=== PATIENT | male | born 1980 | race American Indian/Alaskan Native ===

== ENCOUNTER 2019-05-05 14:47 | Emergency (ER) | payer MEDICAID ==
[2019-05-05] MEDS ORDERED: traMADol 50 MG TAB PO ONE (15:38)
[2019-05-05] MEDS ORDERED: IBUPROFEN 600 MG TAB PO ONE (15:38)
--- NOTE | 2019-05-05 16:15 | Emergency Department Report ---
ED Extremity Problem HPI - General Chief complaint: Extremity Injury, Lower Stated complaint: LEFT LEG PAIN Time Seen by Provider: 05/05/19 15:33 Source: patient Mode of arrival: Ambulatory Limitations: No Limitations - History of Present Illness Initial comments: Patient is a 39-year-old gentleman who states in his lifetime he suffered multiple ankle sprains. Patient states that he twisted his left ankle proctoscopy 6 weeks ago. Patient states that initially had some lateral pain only now he has pain in the ankle as well as the entire calf with swelling. Patient states the pain is 8 out of 10 in severity is worse with walking and bearing weight. Patient was assuming after a few weeks that he could start walking on the ankle normally but states that the swelling has progressively worsened. Patient was reluctant to come in the hospital however he states is now unbearable. Patient denies any fevers chills nausea vomiting at this time. - Related Data Previous Rx's Medication Instructions Recorded Last Taken Type Cephalexin [Keflex] 500 mg PO BID #20 capsule 01/28/14 Unknown Rx HYDROcodone/APAP 5-325 [[place] 1 each PO Q6HR PRN #14 tablet 01/28/14 Unknown Rx 5-325 mg TAB] Sulfamethoxazole/Trimethoprim 1 each PO BID #20 tablet 01/28/14 Unknown Rx [Bactrim Ds] HYDROcodone/APAP 5-325 [[place] 1 each PO Q6HR PRN #14 tablet 05/05/19 Unknown Rx 5/325] Ibuprofen [Motrin 600 MG tab] 600 mg PO Q8H PRN #20 tablet 05/05/19 Unknown Rx Allergies Allergy/AdvReac Type Severity Reaction Status Date / Time No Known Allergies Allergy Unverified 06/07/13 14:56 ED Review of Systems ROS: Stated complaint: LEFT LEG PAIN Other details as noted in HPI Comment: All other systems reviewed and negative ED Past Medical Hx - Past Medical History Previous Medical History?: Yes Hx Diabetes: Yes - Surgical History Past Surgical History?: Yes - Social History Smoking Status: Never Smoker Substance Use Type: None - Medications Home Medications: Home Medications Medication Instructions Recorded Confirmed Last Taken Type Cephalexin [Keflex] 500 mg PO BID #20 capsule 01/28/14 Unknown Rx HYDROcodone/APAP 5-325 [[place] 1 each PO Q6HR PRN #14 tablet 01/28/14 Unknown Rx 5-325 mg TAB] Sulfamethoxazole/Trimethoprim 1 each PO BID #20 tablet 01/28/14 Unknown Rx [Bactrim Ds] HYDROcodone/APAP 5-325 [[place] 1 each PO Q6HR PRN #14 tablet 05/05/19 Unknown Rx 5/325] Ibuprofen [Motrin 600 MG tab] 600 mg PO Q8H PRN #20 tablet 05/05/19 Unknown Rx ED Physical Exam - General Limitations: No Limitations General appearance: alert, in no apparent distress - Head Head exam: Present: atraumatic, normocephalic - Eye Eye exam: Present: normal appearance - ENT ENT exam: Present: mucous membranes moist - Neck Neck exam: Present: normal inspection - Respiratory Respiratory exam: Present: normal lung sounds bilaterally. Absent: respiratory distress, wheezes, rales - Cardiovascular Cardiovascular Exam: Present: regular rate, normal rhythm. Absent: systolic murmur, diastolic murmur, rubs, gallop - Rectal Rectal exam: Present: deferred - Extremities Exam Extremities exam: Present: normal inspection, other (patient has trace edema in the right lower extremity calf. The left lower extremity has 2+ edema and is dramatically more swollen than the right lower extremity. There is some mild erythema diffusely with warmth. Patient has some generalized tenderness that he describes as a tight sensation with palpation of the anterior and posterior calf. He has exquisite tenderness to the lateral malleolus.) - Back Exam Back exam: Present: normal inspection - Neurological Exam Neurological exam: Present: alert, oriented X3 - Psychiatric Psychiatric exam: Present: normal affect, normal mood - Skin Skin exam: Present: warm, dry, intact, normal color. Absent: rash ED Course Vital Signs 05/05/19 16:30 Respiratory 18 Rate - Reevaluation(s) Reevaluation #1: 05/05/19 16:14 Patient is a 39-year-old male who suffered a ankle injury approximately 6 weeks ago. Patient states pain is not improving. Patient stated he has injured his ankle in the past and expected to have resolution of his symptoms by now. Patient also states over the last several weeks his left calf is now swollen and tender as well. Patient will have x-ray of the left ankle to rule out a subacute fracture and the patient also had ultrasound performed. Patient's has no pallor to the leg. There is no pain out of proportion to palpation. Patient has intact dorsalis pedal pulses. ED Medical Decision Making - Medical Decision Making Patient is a 39-year-old male who is presenting several weeks after a left ankle sprain and he's also developed some edema to his left lower extremity since. Patient has gone back to work and walking on his leg quite a bit. Patient likely with an ankle sprain there is no fracture present and no evidence of a subacute fracture. Patient has edema to the left lower extremity there is no DVT present. Patient to be Brayden wrapped to give compression patient should keep this lower sternly elevated when not on his feet. Patient agreed to follow with orthopedics. Patient's given pain management. Patient discharged home. [address] [address] Vascular Lab Report Signed Patient: VALE MIRANDA MR#: [id number] : 1980 Acct:[id number] Age/Sex: 39 / M ADM Date: 05/05/19 Loc: ED Attending Dr: Ordering Physician: KARLA DAVID MD Date of Service: 05/05/19 Procedure(s): VL venous duplex LE LT Accession Number(s): [id number] cc: KARLA DAVID MD DUPLEX DOPPLER LOWER EXTREMITY VEINS, LEFT INDICATION: swelling of leg after injury. TECHNIQUE: Duplex doppler imaging was performed through the veins of the left lower extremity using venous compression and other maneuvers. COMPARISON: None available. FINDINGS: Common Femoral vein: Negative. Superficial Femoral vein: Negative. Popliteal vein: Negative. Calf veins: Negative. Additional findings: None. IMPRESSION: 1. No sonographic evidence for DVT in the left lower extremity. Signer Name: Samson Bear MD Signed: 05/05/2019 4:31 PM Workstation Name: [id number] Transcribed By: TOAN Dictated By: Samson Bear MD Electronically Authenticated By: Samson Bear MD Signed Date/Time: 05/05/[address] [address] XRay Report Signed Patient: VALE MIRANDA MR#: [id number] : 1980 Acct:[id number] Age/Sex: 39 / M ADM Date: 05/05/19 Loc: ED Attending Dr: Ordering Physician: KARLA DAVID MD Date of Service: 05/05/19 Procedure(s): XR ankle 3+V LT Accession Number(s): [id number] cc: KARLA DAVID MD Fluoro Time In Minutes: LEFT ANKLE 3 VIEWS INDICATION: pain after injury. COMPARISON: No relevant prior imaging study available. FINDINGS: No acute, displaced fracture or dislocation is seen. There is no significant degenerative change. No ankle mortise widening is seen. There is minimal calcaneal enthesopathy. IMPRESSION: 1. No acute findings. Signer Name: Samson Bear MD Signed: 05/05/2019 4:34 PM Workstation Name: [id number] Transcribed By: SW Dictated By: Samson Bear MD Electronically Authenticated By: Samson Bear MD Signed Date/Time: 05/05/19 9334 Critical care attestation.: If time is entered above; I have spent that time in minutes in the direct care of this critically ill patient, excluding procedure time. ED Disposition Clinical Impression: High ankle sprain, Lower extremity edema Disposition: - TO HOME OR SELFCARE Is pt being admited?: No Does the pt Need Aspirin: No Condition: Stable Instructions: Ankle Sprain (ED), Leg Edema (ED) Referrals: PRIMARY MD MICHA [Primary Care Provider] - 3-5 Days JOJO PAREKH MD [Staff Physician] - 3-5 Days Time of Disposition: 16:53
--- NOTE | 2019-05-05 16:35 | Vascular Lab Report ---
DUPLEX DOPPLER LOWER EXTREMITY VEINS, LEFT INDICATION: swelling of leg after injury. TECHNIQUE: Duplex doppler imaging was performed through the veins of the left lower extremity using venous compr ession and other maneuvers. COMPARISON: None available. FINDINGS: Common Femoral vein: Negative. Superficial Femoral vein: Negative. Popliteal vein: Negative. Calf veins: Negative. Additional findings: None. IMPRESSION: 1. No sonographic evidence for DVT in the left lower extremity. Signer Name: Samson Bear MD Signed: 05/05/2019 4:31 PM Workstation Name: [id number]
--- NOTE | 2019-05-05 16:39 | XRay Report ---
LEFT ANKLE 3 VIEWS INDICATION: pain after injury. COMPARISON: No relevant prior imaging study available. FINDINGS: No acute, displaced fracture or dislocation is seen. There is no significant degenerative change. No ankle mortise widening is seen. There is minimal calcaneal enthesopathy. IMPRESSION: 1. No acute findings. Signer Name: Samson Bear MD Signed: 05/05/2019 4:34 PM Workstation Name: [id number]
== END 2019-05-05 17:13 | disposition home or self-care (01) ==
LOC: ED 14:47
DX: S93.402A Sprain of unspecified ligament of left ankle, initial encounter (principal); R60.0 Localized edema; E11.9 Type 2 diabetes mellitus without complications; X50.1XXA Overexertion from prolonged static or awkward postures, initial encounter; Y93.89 Activity, other specified; Y92.89 Other specified places as the place of occurrence of the external cause; Y99.8 Other external cause status

== ENCOUNTER 2020-11-09 18:03 | Emergency (ER) | payer BC, MEDICAID ==
--- NOTE | 2020-11-09 20:22 | Emergency Department Report ---
ED Lower Extremity HPI - General Chief Complaint: Extremity Injury, Lower Stated Complaint: LEFT ANKLE PAIN Time Seen by Provider: 11/09/20 20:19 Source: patient Mode of arrival: Ambulatory Limitations: No Limitations - History of Present Illness Initial Comments: 40-year-old male presents to the ER today with complaints of left ankle pain and swelling. Patient states that his symptoms started about a week ago. Patient denies injuring his left ankle but he states that his job requires a lot of standing or walking. Patient complains of pain mainly to the lateral aspect of the left ankle. He states he is worse with movement of the ankle and with ambulation and weightbearing. He states that he sprained it several years ago when he was younger but otherwise denies any fracture or any other issues with his left ankle. He states he has been taking [id number] Aleve without much relief. He reports no chest pain, shortness of breath, fever, chills, skin discoloration or other symptoms at this time. MD Complaint: ankle injury -: Gradual, week(s) (1 week ago ) - Related Data Previous Rx's Medication Instructions Recorded Last Taken Type Cephalexin [Keflex] 500 mg PO BID #20 capsule 01/28/14 Unknown Rx HYDROcodone/APAP 5-325 [[place] 1 each PO Q6HR PRN #14 tablet 01/28/14 Unknown Rx 5-325 mg TAB] Sulfamethoxazole/Trimethoprim 1 each PO BID #20 tablet 01/28/14 Unknown Rx [Bactrim Ds] HYDROcodone/APAP 5-325 [[place] 1 each PO Q6HR PRN #14 tablet 05/05/19 Unknown Rx 5/325] Ibuprofen [Motrin 600 MG tab] 600 mg PO Q8H PRN #20 tablet 11/09/20 Unknown Rx Allergies Allergy/AdvReac Type Severity Reaction Status Date / Time No Known Allergies Allergy Unverified 06/07/13 14:56 ED Review of Systems ROS: Stated complaint: LEFT ANKLE PAIN Other details as noted in HPI Comment: All other systems reviewed and negative Respiratory: denies: cough, shortness of breath, SOB with exertion, SOB at rest, wheezing Cardiovascular: denies: chest pain, palpitations, dyspnea on exertion, orthopnea, edema, syncope, paroxysmal nocturnal dyspnea Gastrointestinal: denies: abdominal pain, nausea, diarrhea, constipation, hematemesis, melena, hematochezia Genitourinary: denies: urgency, dysuria Musculoskeletal: joint swelling, arthralgia. denies: myalgia Skin: denies: rash, lesions Neurological: denies: headache, weakness, numbness, paresthesias, confusion, abnormal gait, vertigo Psychiatric: denies: anxiety, depression Hematological/Lymphatic: denies: easy bleeding, easy bruising ED Past Medical Hx - Past Medical History Previous Medical History?: Yes Hx Diabetes: Yes - Surgical History Past Surgical History?: No - Social History Smoking Status: Never Smoker Substance Use Type: None - Medications Home Medications: Home Medications Medication Instructions Recorded Confirmed Last Taken Type Cephalexin [Keflex] 500 mg PO BID #20 capsule 01/28/14 Unknown Rx HYDROcodone/APAP 5-325 [[place] 1 each PO Q6HR PRN #14 tablet 01/28/14 Unknown Rx 5-325 mg TAB] Sulfamethoxazole/Trimethoprim 1 each PO BID #20 tablet 01/28/14 Unknown Rx [Bactrim Ds] HYDROcodone/APAP 5-325 [[place] 1 each PO Q6HR PRN #14 tablet 05/05/19 Unknown Rx 5/325] Ibuprofen [Motrin 600 MG tab] 600 mg PO Q8H PRN #20 tablet 11/09/20 Unknown Rx ED Physical Exam - General Limitations: No Limitations General appearance: alert, in no apparent distress - Head Head exam: Present: atraumatic, normocephalic, normal inspection - Eye Eye exam: Present: normal appearance, PERRL, EOMI Pupils: Present: normal accommodation - ENT ENT exam: Present: normal exam, mucous membranes moist - Respiratory Respiratory exam: Present: normal lung sounds bilaterally. Absent: respiratory distress - Cardiovascular Cardiovascular Exam: Present: regular rate, normal rhythm, normal heart sounds - GI/Abdominal GI/Abdominal exam: Present: soft. Absent: distended, tenderness, guarding, rebound - Extremities Exam Extremities exam: Present: full ROM (He has full range of motion of the ankle but it is painful), tenderness (Mild to the lateral aspect of the left ankle.), normal capillary refill, joint swelling (Diffusely about the left ankle.), other (Dorsalis pedis pulse normal.). Absent: calf tenderness - Neurological Exam Neurological exam: Present: alert, oriented X3, CN II-XII intact, normal gait - Psychiatric Psychiatric exam: Present: normal affect, normal mood - Skin Skin exam: Present: intact ED Course Vital Signs 11/09/20 11/09/20 18:09 21:24 Temperature 98.8 F Pulse Rate 106 H 105 H Respiratory 18 16 Rate Blood Pressure 137/96 [Right] O2 Sat by Pulse 100 99 Oximetry ED Lower Extremity MDM - Radiology Data Radiology results: report reviewed Patient: VALE MCKEON MR#: [id number] : 1980 Acct:[id number] Age/Sex: 40 / M ADM Date: 11/09/20 Loc: ED Attending Dr: Ordering Physician: BREE DIAZ Date of Service: 11/09/20 Procedure(s): XR ankle 3+V LT Accession Number(s): [id number] cc: BREE DIAZ Fluoro Time In Minutes: LEFT ANKLE 4 VIEW(S) INDICATION / CLINICAL INFORMATION: pain/swelling COMPARISON: None available. FINDINGS: BONES / JOINT(S): No acute fracture or subluxation. Mild calcaneal enthesopathy is visualized. SOFT TISSUES: Diffuse ankle soft tissue edema is seen. ADDITIONAL FINDINGS: None. Signer Name: Jose Dykes MD Signed: 11/09/2020 8:57 PM Workstation Name: [id number] Transcribed By: SS Dictated By: JOSE DYKES Electronically Authenticated By: JOSE DYKES Signed Date/Time: 11/09/202056 DD/ 54 TD/TT: - Medical Decision Making 40-year-old male presents to the ER today with complaints of left ankle pain and swelling. Patient states that his symptoms started about a week ago. Patient denies injuring his left ankle but he states that his job requires a lot of standing or walking. Patient complains of pain mainly to the lateral aspect of the left ankle. He states he is worse with movement of the ankle and with ambulation and weightbearing. He states that he sprained it several years ago when he was younger but otherwise denies any fracture or any other issues with his left ankle. He states he has been taking [id number] Aleve without much relief. He reports no chest pain, shortness of breath, fever, chills, skin discoloration or other symptoms at this time. 2106: X-ray shows soft tissue swelling but otherwise nothing acute. Physical exam does not suggest any septic joint, DVT, acute arterial occlusion, acute gout, ChF, or any other significant emergent medical condition at this time. Swelling could be related to dependent edema or strain from him constantly being on his feet. Patient is well-appearing, not toxic and not in any acute distress. He is neurologically intact with a normal gait. At this time I do not see any indication for any further work-up or imaging at this time. Discussed x-ray results, suspected diagnosis and treatment plan with patient. Patient expressed understanding for agree with plan. Patient be given referral to local primary care doctor. Patient stable at time of discharge. Critical care attestation.: If time is entered above; I have spent that time in minutes in the direct care of this critically ill patient, excluding procedure time. ED Disposition Clinical Impression: Left ankle pain, Left ankle strain, Left ankle swelling Disposition: TO HOME OR SELFCARE Is pt being admited?: No Does the pt Need Aspirin: No Condition: Stable Instructions: Edema, Ankle Pain Additional Instructions: I recommend that you elevate your leg as often as possible. Take the ibuprofen as prescribed. Follow-up with the primary care doctor and or the orthopedic doctor listed on your discharge instructions if your symptoms persist. Return to the ER if your symptoms changes or worsens in any way. Prescriptions: Ibuprofen [Motrin 600 MG tab] 600 mg PO Q8H PRN #20 tablet PRN Reason: Pain Referrals: TWILA THOMAS MD [Staff Physician] - 7-10 days JOJO PAREKH MD [Staff Physician] - 7-10 days Forms: Work/School Release Form(ED) Time of Disposition: 21:12
--- NOTE | 2020-11-09 21:01 | XRay Report ---
LEFT ANKLE 4 VIEW(S) INDICATION / CLINICAL INFORMATION: pain/swelling COMPARISON: None available. FINDINGS: BONES / JOINT(S): No acute fracture or subluxation. Mild calcaneal enthesopathy is visualized. SOFT TISSUES: Diffuse ankle soft tissue edema is seen. ADDITIONAL FINDINGS: None. Signer Name: Mich Dykes MD Signed: 11/09/2020 8:57 PM Workstation Name: [id number]
[2020-11-09 21:25] VITALS: BP 137/96
== END 2020-11-09 21:27 | disposition home or self-care (01) ==
LOC: ED 18:03
DX: S96.912A Strain of unspecified muscle and tendon at ankle and foot level, left foot, initial encounter (principal); E11.9 Type 2 diabetes mellitus without complications; Z79.1 Long term (current) use of non-steroidal anti-inflammatories (NSAID); Z79.899 Other long term (current) drug therapy; X58.XXXA Exposure to other specified factors, initial encounter; Y93.89 Activity, other specified; Y92.89 Other specified places as the place of occurrence of the external cause; Y99.8 Other external cause status